=== PATIENT | female | born 1990 | race Caucasian/White ===

== ENCOUNTER 2016-10-26 13:33 | Emergency (ER) | payer OTHER ==
[2016-10-26 13:39] VITALS: RESP 16; TEMP 97.7
--- NOTE | 2016-10-26 14:31 | EDPHY ---
H & P Stated Complaint: HIT BY ANOTHER PLAYER IN SOCCER/FELL HITTING HEAD WITH LOC Time Seen by Provider: 10/26/16 13:40 HPI/ROS: CHIEF COMPLAINT: head injury HISTORY OF PRESENT ILLNESS: 26-year-old female presents to the emergency department after a head injury while playing co-ed soccer today. Patient was running and collided with another player. She remembers seeing the other player running towards her and then remembers waking up on the ground. This was a witnessed event. No seizure-like activity, brief loss of consciousness. Patient reports she had a mild headache and neck stiffness after the accident 1 hour prior to arrival she reports her neck pain has resolved and her headache is resolving, barely there. She denies blurred vision, no nausea, no vomiting. Patient reports left index finger discomfort. REVIEW OF SYSTEMS: A comprehensive 10 point review of systems is otherwise negative aside from elements mentioned in the history of present illness. Source: Patient, Family Exam Limitations: No limitations - Personal History LMP (Females 10-55): 1-7 Days Ago Current Tetanus/Diphtheria Vaccine: Unsure - Medical/Surgical History Hx Asthma: No Hx Chronic Respiratory Disease: No Hx Diabetes: No Hx Cardiac Disease: No Hx Renal Disease: No Hx Cirrhosis: No Hx Alcoholism: No Hx HIV/AIDS: No Hx Splenectomy or Spleen Trauma: No Other PMH: IBS, exercise induced asthma - Social History Smoking Status: Never smoked - Physical Exam Exam: General Appearance: Alert, no distress, talking appropriately, comfortable. Head: Atraumatic without scalp tenderness or obvious injury Eyes: Pupils equal, round, reactive to light, EOMI, no trauma, no injection. Ears: Clear bilaterally, no perforation, no hemotympanum Nose: Atraumatic, no rhinorrhea, no septal hematoma Neck: The cervical spine is non-tender and there is no pain or neurologic deficits with active range of motion. Cardiovascular: Heart is regular rate and rhythm without murmur. Good capillary refill all extremities. Chest: Atraumatic, equal bilateral breath sounds. Chest is non-tender to palpation. Gastrointestinal: Soft, non-tender, non-distended. No rebound, guarding, or peritoneal signs. There is no evidence of external or internal trauma. Back:There is no thoracic or lumbar spine or paraspinal tenderness. Extremities: All extremities are non-tender to palpation without obvious deformity. There is full active range of motion of the joints. Neurological: The patient has normal DTRs and non-focal Cranial nerves, motor, sensory, and cerebellar exam Skin: No lacerations, hamilton, or abrasions. Constitutional: Initial Vital Signs Temperature (C) 36.5 C 10/26/16 13:36 Heart Rate 70 10/26/16 13:36 Respiratory Rate 16 10/26/16 13:36 Blood Pressure 120/98 H 10/26/16 13:36 O2 Sat (%) 97 10/26/16 13:36 O2 Delivery Mode Room Air Allergies/Adverse Reactions: Sulfa (Sulfonamide Antibiotics) Allergy (Unknown, Verified 10/26/16 13:36) acetaminophen Allergy (Verified 10/26/16 13:36) Home Medications: Medication Instructions Recorded Tri-Cyclen Lo 10/26/16 Medical Decision Making ED Course/Re-evaluation: This patient presents after a minor head injury with brief witnessed loss of consciousness and a headache that is resolving. Neurologic exam normal. No indication for neuro imaging. [facility] precautions given. Family is at bedside, everyone is comfortable with this plan and agree to return for any new symptoms or concerns. Differential Diagnosis: The differential diagnosis for the patient's head injury included but was not limited to concussion, skull fracture, intra-parenchymal contusion, subarachnoid , subdural and epidural hematoma. Departure - Departure Disposition: Home, Routine, Self-Care Clinical Impression: Head injury Qualifiers: Encounter type: initial encounter Qualified Code(s): S09.90XA - Unspecified injury of head, initial encounter Sprain of left index finger Qualifiers: Encounter type: initial encounter Sprain of finger site: metacarpophalangeal joint Qualified Code(s): S63.651A - Sprain of metacarpophalangeal joint of left index finger, initial encounter Condition: Good Instructions: Head Injury (ED) Additional Instructions: Take 400 mg of ibuprofen every 8 hours with food for 3-5 days for any headaches , follow up with the concussion specialist for any symptoms that are lasting more than 2-3 days. Do not do anything that compared to at risk for hitting her head again until your symptoms have resolved. Ice and elevate your finger, ibuprofen will help this is well, follow up with orthopedist for symptoms that are not improving or are worsening. Referrals: Dixie Ramirez MD [Medical Doctor] - As per Instructions (Concussion specialist) David Mccormack MD [Medical Doctor] - As per Instructions (Orthopedist)
[2016-10-26 15:10] VITALS: BP 117/85; PULSE 77; O2SAT 95
== END 2016-10-26 15:09 | disposition home or self-care (01) ==
DX: S63.651A Sprain of metacarpophalangeal joint of left index finger, initial encounter (principal); S09.90XA Unspecified injury of head, initial encounter; J45.909 Unspecified asthma, uncomplicated; W50.0XXA Accidental hit or strike by another person, initial encounter; Y93.66 Activity, soccer
CPT/HCPCS: L3925